=== PATIENT | female | born 1975 | race Caucasian/White ===

== ENCOUNTER 2021-05-25 15:41 | Emergency (ER) | payer OTHER ==
[~2021-05-25] VITALS: Ht 162.6 cm; Wt 57.1 kg
[~2021-05-25 15:41] MED LIST: CITRATE OF MAG296 ML PO; HYDROCODONE-AP1 EAC6 PO; LEXAPRO 10 MG T10 M1 PO; MOBIC7.5 MG PO; NABUMETONE 750750 M1 PO; NEXIUM40 MG PO; NORCO 5-325 TA1 EACH PO; PAXIL20 MG PO; PREDNISONE 10 M10 MG PO; REGLAN 5 MG TAB5 M1 PO
[2021-05-25 17:05] LABS: ABSOLUTE NEUTROPHILS 4.1 thou/uL (1.4-8.2); BASOPHILS 0.5 % (0.0-2.0); EOSINOPHILS 0.4 % (0.0-3.0); HEMATOCRIT 40.2 % (37.0-47.0); HEMOGLOBIN 13.9 gm/dL (12.0-15.0); LYMPHOCYTES 27.5 % (24.0-44.0); MCH 30.8 pg (26.0-34.0); MCHC 34.7 g/dL (28.0-37.0); MCV 88.9 fL (80.0-100.0); MONOCYTES 5.5 % (1.0-8.0); PLATELET COUNT 199 thou/uL (150-400); POLYS 66.1 % (36.0-66.0); RBC 4.52 mil/uL (4.20-5.00); RDW 13.1 % (10.5-14.5); WBC 6.2 thou/uL (4.0-11.0)
[2021-05-25 17:13] LABS: CALCIUM 9.1 mg/dL (8.5-10.1); CREATININE 0.7 mg/dL (0.6-1.0); POTASSIUM 3.6 mmol/L (3.5-5.1)
[2021-05-25] MEDS ORDERED: ATENOLOL 25 MG25 M1 PO (17:32)
[2021-05-25] MEDS ORDERED: ATIVAN0.5 M1 PO (17:32)
[2021-05-25 18:34] VITALS: BP 136/83
--- NOTE | 2021-05-26 07:17 | EKG ---
[place] [id number] [facility] [place] [address] ELECTROCARDIOGRAM REPORT Name: CECERICHY VANESSA Room #: [facility]ITAL[facility] [id number] Admission: 05/25/21 Attend Phys: Discharge: 05/25/21 Date of : 71 Report #: [id number] [facility] ED Test Date: 2021-05-25 Test Time: 15:45:12 Pat Name: RICHY ZHAO Department: Room: Gender: F [employer]eral [employer]anner: MAXIMO : 1975 Requested By: Malachi Yuan Order Number: [id number] MD: Chau Ramirez Measurements Intervals [place] Rate: 84 P: 64 DC: 148 QRS: 20 QRSD: 100 T: 51 QT: 381 QTc: 451 Interpretive Statements Sinus rhythm Compared to ECG 12/14/2004 05:52:36 No significant changes Electronically Signed On 05-26-2021 7:17:14 [employer]IFT STACKER by Chau Ramirez [email or web address] <ELECTRONICALLY SIGNED> By: Chau Ramirez MD, [facility] 05/26/21 0717 1545 1545 Chau Ramirez MD, FACC /EPI
== END 2021-05-25 18:41 | disposition home or self-care (01) ==
LOC: ER 15:41
PROVIDERS: Emergency Medicine
DX: I10 Essential (primary) hypertension (principal); R53.83 Other fatigue; Z85.3 Personal history of malignant neoplasm of breast; Z86.16 Personal history of COVID-19; Z79.1 Long term (current) use of non-steroidal anti-inflammatories (NSAID); Z79.891 Long term (current) use of opiate analgesic; Z79.899 Other long term (current) drug therapy; Z88.6 Allergy status to analgesic agent

== ENCOUNTER → 2021-05-27 | Outpatient (CLI) | payer OTHER ==
[~2021-05-27] MED LIST changes: +ATENOLOL 25 MG25 M1 PO; +ATIVAN0.5 M1 PO
== END ==
LOC: CAT 11:16
PROVIDERS: ATTEND Internal Medicine
DX: Z13.6 Encounter for screening for cardiovascular disorders (principal)

== ENCOUNTER → 2021-06-17 | Outpatient (CLI) | payer OTHER | LOC: SJCVCIMAG 06-09 15:41 | PROVIDERS: ATTEND Internal Medicine | DX: R00.2 Palpitations (principal); I10 Essential (primary) hypertension; R07.9 Chest pain, unspecified ==